=== PATIENT | female | born 1935 | race Caucasian/White ===

== ENCOUNTER 2021-02-02 23:45 | Emergency (ER) | payer OTHER ==
[~2021-02-02] VITALS: Ht 152.4 cm; Wt 51.7 kg
[~2021-02-02 23:45] MED LIST: ADULT LOW DOSE81 MG PO; ANALPRAM HC 1%30 GM; CALCIUM; CALCIUM 600 +1 EAC5; CARDIOTEK TABL1 EACH PO; CENTRUM SILVER1 EAC4; COREG CR20 MG PO; CRESTOR10 MG PO; CRESTOR20 MG PO; HYDROCHLOROTH12.5 MG PO; LEVOTHROID75 MCG PO; LEVOTHYROXIN0.112 MG PO; LISINOPRIL10 MG PO; NORCO 5-325 TA1 EACH PO; NORVASC 2.5 MG2.5 M1 PO; OMEGA 3-6-9 CO1 EACH; OMEGA-31000 MG PO; PREDNISONE50 MG PO; VITAMIN D1000 UNI1 PO; VITAMIN D31 ML; ZYNCOL30 MG
[2021-02-02] MEDS ORDERED: FOSAMAX 70 MG T70 MG PO (23:56)
[2021-02-02] MEDS ORDERED: ESCITALOPRA5 MG/5 ML PO (23:57)
[2021-02-02] MEDS ORDERED: MAGNESIUM400 MG PO (23:58)
[2021-02-02] MEDS ORDERED: LATANOPROST 0.2.5 ML OPHTHALMIC (23:58)
[2021-02-02] MEDS ORDERED: MUPIROCIN1 GM TOP (23:59)
[2021-02-03 00:19] VITALS: BP 231/78
[2021-02-03] MEDS ORDERED: NORVASC5 MG PO (01:36)
--- NOTE | 2021-02-04 07:03 | EKG ---
[place] [address] [facility] [employer] [place] [address] ELECTROCARDIOGRAM REPORT Name: JAZMINE ZIEGLER Marcos [facility]: [facility] [id number] Admission: 02/02/21 Attend Phys: Discharge: 02/03/21 Date of : 33 Report #: [id number] [facility] ED Test Date: 2021-02-02 Test Time: 23:57:34 Pat Name: JAZMINE ZIEGLER Department: Room: Gender: F Quality Systems Manager: : 1935 Requested By: Keiko Esparza Order Number: [id number] MD: Tru Stallworth Measurements Intervals Royal Rate: 84 P: -31 LA: 190 QRS: -7 QRSD: 82 T: 27 QT: 381 QTc: 451 Interpretive Statements Sinus rhythm Compared to ECG 01/23/2004 20:15:03 Sinus tachycardia no longer present Electronically Signed On 02-04-2021 7:03:40 DEVELOPMENT TECHNOLOGIST by Tru Stallworth [email or web address] <ELECTRONICALLY SIGNED> By: Tru Stallworth MD, [facility] 02/04/21 [id number] Tru Stallworth MD, FACC /EPI
== END 2021-02-03 01:40 | disposition home or self-care (01) ==
LOC: ER 23:45
DX: I10 Essential (primary) hypertension (principal); E03.9 Hypothyroidism, unspecified; E78.00 Pure hypercholesterolemia, unspecified; Z79.891 Long term (current) use of opiate analgesic; Z79.899 Other long term (current) drug therapy; Z88.2 Allergy status to sulfonamides; Z88.6 Allergy status to analgesic agent; Z88.8 Allergy status to other drugs, medicaments and biological substances